=== PATIENT | female | born 1960 | race Hispanic/Latino ===

== ENCOUNTER 2025-04-15 14:02 | Outpatient (CLI) | payer OTHER | END 2025-04-15 14:03 | disposition home or self-care (01) | LOC: BICMAMMO 14:02 | PROVIDERS: ATTEND Family Medicine | DX: Z13.820 Encounter for screening for osteoporosis (principal); Z78.0 Asymptomatic menopausal state; M85.851 Other specified disorders of bone density and structure, right thigh; M85.852 Other specified disorders of bone density and structure, left thigh | CPT/HCPCS: 77080 ==